=== PATIENT | male | born 1975 ===

== ENCOUNTER 2021-05-15 12:43 | Emergency (ER) | payer SELFPAY ==
[2021-05-15 13:32] VITALS: BP 146/80
[2021-05-15 14:58] LABS: Basophils % (Auto) 0.4 % (0.0-1.8); Eosinophils # (Auto) 0.1 K/mm3 (0.0-0.4); Eosinophils % (Auto) 0.9 % (0.0-4.3); Hematocrit 45.3 % (35.5-45.6); Hemoglobin 14.6 gm/dl (11.8-15.2); Lymphocytes # (Auto) 1.1 K/mm3 (1.2-5.4); Lymphocytes % (Auto) 11.3 % (13.4-35.0); Mean Corpuscular HGB Conc 32 % (32-34); Mean Corpuscular Volume 90 fl (84-94); Monocytes # (Auto) 0.5 K/mm3 (0.0-0.8); Monocytes % (Auto) 4.9 % (0.0-7.3); Platelet Count 320 K/mm3 (140-440); Red Blood Count 5.02 M/mm3 (3.65-5.03); Red Cell Distribution Width 13.9 % (13.2-15.2)
[2021-05-15 15:13] LABS: Albumin 4.1 g/dL (3.9-5); Calcium 9.1 mg/dL (8.4-10.2)
[2021-05-15] MEDS ORDERED: ONDANSETRON 4 MG/2 ML INJ IV ONE (16:01)
[2021-05-15] MEDS ORDERED: MORPHINE 4 MG/1 ML INJ IV ONE (16:01)
--- NOTE | 2021-05-15 16:06 | Event Note ---
ED Screening Note ED Screening Note: Sudden onset of epigastric pain around 10:30 AM today Denies chest pain or shortness of breath Denies history of heartburn Patient states pain worsens with sitting No vomiting or diarrhea Patient does appear very uncomfortable This initial assessment/diagnostic orders/clinical plan/treatment(s) is/are subj ect to change based on patients health status, clinical progression and re- assessment by fellow clinical providers in the ED. Further treatment and workup at subsequent clinical providers discretion. Patient/guardian urged not to elope from the ED as their condition may be serious if not clinically assessed and managed. Initial orders include: Labs CT abdomen Chest x-ray
--- NOTE | 2021-05-15 16:23 | XRay Report ---
CHEST 2 VIEWS INDICATION / CLINICAL INFORMATION: acute epigastric pain. COMPARISON: None available. FINDINGS: SUPPORT DEVICES: None. HEART / MEDIASTINUM: No significant abnormality. LUNGS / PLEURA: Suboptimal inspiration with low lung volumes and mild bibasilar atelectasis. No pneum othorax. ADDITIONAL FINDINGS: No significant additional findings. IMPRESSION: 1. No acute findings. Signer Name: Esdras Scherer MD Signed: 05/15/2021 4:19 PM Workstation Name: [id number]
[2021-05-15] MEDS ORDERED: PANTOPRAZOLE 40 MG INJ IV ONE (16:36)
--- NOTE | 2021-05-15 16:37 | Emergency Department Report ---
ED General Adult HPI - General Chief complaint: Abdominal Pain Stated complaint: STOMACH PAIN PUI?: No Time Seen by Provider: 05/15/21 16:33 Source: patient, RN notes reviewed Mode of arrival: Ambulatory Limitations: No Limitations - History of Present Illness Initial comments: The patient was evaluated in the emergency department for symptoms described in the history of present illness. He/she was evaluated in the context of the global COVID-19 pandemic, which necessitated consideration that the patient might be at risk for infection with the virus that causes COVID-19. Institutional protocols and algorithms that pertain to the evaluation of patients at risk for COVID-19 are in a state of rapid change based on informa tion released by regulatory bodies including the CDC and federal and state organizations. These policies and algorithms were followed during the patient's care in the emergency department. Please note that these policies, procedures and recommendations changed on a rapid basis. The patient is a pleasant 46-year-old gentleman, who presents to the ER today with complaint of epigastric abdominal pain. The pain does not radiate anywhere. It worsens with palpation and with certain positions. And it decreases with certain positions and leaning back. No headache, neck pain, upper chest pain, vomiting, diarrhea, urinary symptoms or testicular pain. Patient denies DVT and pulmonary embolism risk factors. He denies coughing. He does not have an outpatient primary care doctor at this time He also denies contributory family history. -: Gradual, hour(s) (Since 1030 this morning) Location: abdomen Radiation: non-radiation Consistency: constant Improves with: rest Worsens with: movement - Related Data Previous Rx's Medication Instructions Recorded Last Taken Type Acetaminophen [Non-Aspirin Extra 500 mg PO Q6HR PRN #30 tablet 05/15/21 Unknown Rx Strength] Albuterol Sulfate [Proair 90 mcg IH Q4HR PRN #2 aer.pow.ba 05/15/21 Unknown Rx Respiclick] Amoxicillin [Trimox CAP] 1,000 mg PO Q8H #28 capsule 05/15/21 Unknown Rx Azithromycin [Zithromax TAB] 250 mg PO QDAY #4 tablet 05/15/21 Unknown Rx Allergies Allergy/AdvReac Type Severity Reaction Status Date / Time No Known Allergies Allergy Unverified 05/15/21 13:25 ED Review of Systems ROS: Stated complaint: STOMACH PAIN Other details as noted in HPI Constitutional: denies: fever Eyes: denies: eye discharge ENT: denies: epistaxis Respiratory: denies: cough Cardiovascular: denies: chest pain Gastrointestinal: abdominal pain. denies: vomiting, hematemesis, melena, hematochezia Genitourinary: denies: dysuria Musculoskeletal: denies: back pain Neurological: denies: weakness Hematological/Lymphatic: denies: easy bleeding ED Past Medical Hx - Past Medical History Previous Medical History?: No - Surgical History Past Surgical History?: No - Medications Home Medications: Home Medications Medication Instructions Recorded Confirmed Last Taken Type Acetaminophen [Non-Aspirin Extra 500 mg PO Q6HR PRN #30 tablet 05/15/21 Unknown Rx Strength] Albuterol Sulfate [Proair 90 mcg IH Q4HR PRN #2 aer.pow.ba 05/15/21 Unknown Rx Respiclick] Amoxicillin [Trimox CAP] 1,000 mg PO Q8H #28 capsule 05/15/21 Unknown Rx Azithromycin [Zithromax TAB] 250 mg PO QDAY #4 tablet 05/15/21 Unknown Rx ED Physical Exam - General Limitations: No Limitations General appearance: obese - Head Head exam: Present: atraumatic, normocephalic - Eye Eye exam: Present: normal appearance, EOMI. Absent: nystagmus - ENT ENT exam: Present: normal exam, normal orophraynx, mucous membranes moist, normal external ear exam - Neck Neck exam: Present: normal inspection, full ROM. Absent: tenderness, meningismus - Respiratory Respiratory exam: Present: normal lung sounds bilaterally. Absent: respiratory distress, wheezes, rales, rhonchi, stridor, decreased breath sounds - Cardiovascular Cardiovascular Exam: Present: regular rate, normal rhythm, normal heart sounds. Absent: bradycardia, tachycardia, irregular rhythm, systolic murmur, diastolic murmur, rubs, gallop - GI/Abdominal GI/Abdominal exam: Present: soft, tenderness, other (There is epigastric and left upper quadrant tenderness to deep palpation. There is a negative Valdes sign. There is negative Rovsing sign. There is no right lower quadrant tenderness). Absent: distended, guarding, rebound, rigid, pulsatile mass - Rectal Rectal exam: Present: deferred - Extremities Exam Extremities exam: Present: normal inspection, full ROM, other (2+ pulses noted in the bilateral upper and lower extremities. There is no palpable cord. negative Homans sign. Muscular compartments are soft. The pelvis is stable.). Absent: pedal edema, calf tenderness - Back Exam Back exam: Present: normal inspection, full ROM. Absent: tenderness, CVA tenderness (R), CVA tenderness (L), paraspinal tenderness, vertebral tenderness - Neurological Exam Neurological exam: Present: alert, oriented X3, normal gait, other (No facial droop. Tongue midline. Extraocular movements intact bilaterally. Facial sensation intact to light touch in V1, V2, V3 distribution bilaterally. 5 and a 5 strength in 4 extremities. Sensation intact to light touch in 4 extremities.) . Absent: motor sensory deficit - Psychiatric Psychiatric exam: Present: normal affect, normal mood - Skin Skin exam: Present: warm, dry, intact, normal color. Absent: rash ED Course Vital Signs 05/15/21 13:31 Temperature 98.2 F Pulse Rate 67 Respiratory 20 Rate Blood Pressure 146/80 O2 Sat by Pulse 100 Oximetry - Reevaluation(s) Reevaluation #1: 05/15/21 17:53 Differential diagnosis, including but not limited to: GERD, gastritis, hiatal hernia, pancreatitis, obstruction Assessment and plan: 46-year-old gentleman presenting with epigastric abdominal pain and tenderness, who denies DVT and pulmonary embolism risk factors, who is low risk by Wells criteria for pulmonary embolism, who is PERC negative, who is also low risk for major adverse cardiac event as per heart score. CT scan of the abdomen pelvis will be obtained with IV and oral contrast to evaluate distal esophagus and proximal stomach/duodenum. We will treat his symptoms, and reassess after initial data points. I discussed this with the patient. He is agreeable to this plan of care. 05/15/21 18:51 Patient reassessed. He feels improved. CT scan abdomen pelvis demonstrates incidental pulmonary nodule, and left lower lung groundglass opacity. The patient is not hypoxic. He is ambulatory with a steady gait. Avoid NSAIDs, diet lifestyle modifications, empiric antibiotics to cover community acquired pneumonia, outpatient follow-up. Specifically advised on importance on follow- up with her primary care doctor or green chainer for pulmonary nodule. Patient articulates understanding. Return precautions reviewed. ED Medical Decision Making - Lab Data Result diagrams: 05/15/21 14:39 05/15/21 14:39 Vital Signs 05/15/21 13:31 Temperature 98.2 F Pulse Rate 67 Respiratory 20 Rate Blood Pressure 146/80 O2 Sat by Pulse 100 Oximetry Lab Results 05/15/21 05/15/21 05/15/21 Range/Units 14:39 14:39 16:33 WBC 9.7 (4.5-11.0) K/mm3 RBC 5.02 (3.65-5.03) M/mm3 Hgb 14.6 (11.8-15.2) gm/dl Hct 45.3 (35.5-45.6) % MCV 90 (84-94) fl MCH 29 (28-32) pg MCHC 32 (32-34) % RDW 13.9 (13.2-15.2) % Plt Count 320 (140-440) K/mm3 Lymph % (Auto) 11.3 L (13.4-35.0) % Posey % (Auto) 4.9 (0.0-7.3) % Eos % (Auto) 0.9 (0.0-4.3) % Baso % (Auto) 0.4 (0.0-1.8) % Lymph # (Auto) 1.1 L (1.2-5.4) K/mm3 Posey # (Auto) 0.5 (0.0-0.8) K/mm3 Eos # (Auto) 0.1 (0.0-0.4) K/mm3 Baso # (Auto) 0.0 (0.0-0.1) K/mm3 Seg Neutrophils % 82.5 H (40.0-70.0) % Seg Neutrophils # 8.0 H (1.8-7.7) K/mm3 Sodium 138 (137-145) mmol/L Potassium 4.1 (3.6-5.0) mmol/L Chloride 103.3 (98-107) mmol/L Carbon Dioxide 22 (22-30) mmol/L Anion Gap 17 mmol/L BUN 7 L (9-20) mg/dL Creatinine 1.3 (0.8-1.3) mg/dL Estimated GFR 59 ml/min BUN/Creatinine Ratio 5 % Glucose 124 H (75-100) mg/dL Calcium 9.1 (8.4-10.2) mg/dL Total Bilirubin 0.70 (0.1-1.2) mg/dL AST 17 (5-40) units/L ALT 13 (7-56) units/L Alkaline Phosphatase 75 (35-129) units/L Troponin T < 0.010 (0.00-0.029) ng/mL Total Protein 8.2 (6.3-8.2) g/dL Albumin 4.1 (3.9-5) g/dL Albumin/Globulin Ratio 1.0 % Lipase 26 (13-60) units/L - EKG Data -: EKG Interpreted by Md EKG shows normal: sinus rhythm Rate: bradycardia - EKG Data When compared to previous EKG there are: previous EKG unavailable 05/15/21 17:53 The EKG is interpreted at 16: 46 Sinus rhythm, rate 57 bpm. Normal axis, normal P wave axis, motion artifact. Sinus arrhythmia noted. Abnormal EKG. Not a STEMI. - Radiology Data Radiology results: pending, report reviewed, image reviewed CHEST 2 VIEWS INDICATION / CLINICAL INFORMATION: acute epigastric pain. COMPARISON: None available. FINDINGS: SUPPORT DEVICES: None. HEART / MEDIASTINUM: No significant abnormality. LUNGS / PLEURA: Suboptimal inspiration with low lung volumes and mild bibasilar atelectasis. No pneumothorax. ADDITIONAL FINDINGS: No significant additional findings. IMPRESSION: 1. No acute findings. Signer Name: Esdras Scherer MD Signed: 05/15/2021 3:19 PM Workstation Name: [id number] CT ABDOMEN AND PELVIS WITH CONTRAST INDICATION / CLINICAL INFORMATION: epigastric pain, B/L UPPER abd pain, iv/oral. TECHNIQUE: Axial CT images were obtained through the abdomen and pelvis after 100 cc of Omnipaque [address] scans at this location are performed using CT dose reduction for ALARA by means of automated exposure control. COMPARISON: None available. FINDINGS: LOWER CHEST: There are minimal peripheral groundglass densities in the left lung base. There is a 3 mm nodule, series 2 image 24 in the right lung base. LIVER: No significant abnormality. GALLBLADDER: No significant abnormality. BILE DUCTS: No significant abnormality. PANCREAS: No significant abnormality. SPLEEN: No significant abnormality. ADRENALS: No significant abnormality. RIGHT KIDNEY / URETER: No significant abnormality. LEFT KIDNEY / URETER: No significant abnormality. STOMACH / SMALL BOWEL: No significant abnormality. COLON: No significant abnormality. APPENDIX: No significant abnormality. PERITONEUM: No free fluid. No free air. No fluid collection. LYMPH NODES: No significant adenopathy. AORTA / ARTERIES: No significant abnormality. IVC / VEINS: No significant abnormality. URINARY BLADDER: No significant abnormality. REPRODUCTIVE ORGANS: No significant abnormality. ADDITIONAL FINDINGS: None. SKELETAL SYSTEM: No acute abnormality. IMPRESSION: 1. There is no obstruction, inflammation, or free air. 2. There are some mild groundglass density in the left lung base which is nonspecific. This could represent pneumonitis. Could represent some minimal small airways disease or asymmetric edema 3. Single incidental pulmonary nodule(s) in the right lower lobe measuring 3 mm with solid characteristics. Recommendation according to Fleischner Society 2017 Guidelines: Low Risk Patient: No routine follow-up; High Risk Patient: Optional CT at 12 months. Signer Name: Scott Rivas MD Signed: 05/15/2021 5:25 PM Workstation Name: [id number] Critical care attestation.: If time is entered above; I have spent that time in minutes in the direct care of this critically ill patient, excluding procedure time. ED Disposition Clinical Impression: Epigastric abdominal pain, Pulmonary nodule, Abnormal CT scan, lung, BMI 40.0- 44.9, adult Disposition: 01 HOME / SELF CARE / HOMELESS Is pt being admited?: No Does the pt Need Aspirin: No Condition: Good Additional Instructions: Avoid consumption of Motrin, ibuprofen, alcohol, tobacco, smoke products, heavy and spicy foods. Take the acetaminophen as needed for physical pain, albuterol as needed for cough and shortness of breath, and antibiotics as directed. Follow-up with a primary care doctor or green chainer within the next 2 weeks for left lower lung groundglass opacities noted on CT scan of the chest, and for right-sided lung pulmonary nodule. It is important to follow-up for right-sided pulmonary nodule to exclude tumor, cancer, malignancy. Dr. Randy Fraga Is a primary care doctor, Dr. Brush Is a local green chainer. Recommend exercise as tolerated, aggressive weight loss for body mass index of 44. Please return to the emergency room right away with new pain, worsened pain, migration of pain, projectile vomiting, change in mental status, confusion, inability tolerate liquid feeds, new, worsened or different symptoms not present on the initial emergency room evaluation Referrals: CHRISTY FRAGA MD [Staff Physician] - 3-5 Days JOSH BRUSH MD [Staff Physician] - 3-5 Days Forms: Work/School Release Form(ED)
--- NOTE | 2021-05-15 18:30 | Cat Scan Report ---
CT ABDOMEN AND PELVIS WITH CONTRAST INDICATION / CLINICAL INFORMATION: epigastric pain, B/L UPPER abd pain, iv/oral. TECHNIQUE: Axial CT images were obtained through the abdomen and pelvis after 100 cc of Omnipaque [address] scans at this location are performed using CT dose reduction for ALARA by means of automated exposure control. COMPARISON: None available. FINDINGS: LOWER CHEST: There are minimal peripheral groundglass densities in the left lung base. There is a 3 m m nodule, series 2 image 24 in the right lung base. LIVER: No significant abnormality. GALLBLADDER: No significant abnormality. BILE DUCTS: No significant abnormality. PANCREAS: No significant abnormality. SPLEEN: No significant abnormality. ADRENALS: No significant abnormality. RIGHT KIDNEY / URETER: No significant abnormality. LEFT KIDNEY / URETER: No significant abnormality. STOMACH / SMALL BOWEL: No significant abnormality. COLON: No significant abnormality. APPENDIX: No significant abnormality. PERITONEUM: No free fluid. No free air. No fluid collection. LYMPH NODES: No significant adenopathy. AORTA / ARTERIES: No significant abnormality. IVC / VEINS: No significant abnormality. URINARY BLADDER: No significant abnormality. REPRODUCTIVE ORGANS: No significant abnormality. ADDITIONAL FINDINGS: None. SKELETAL SYSTEM: No acute abnormality. IMPRESSION: 1. There is no obstruction, inflammation, or free air. 2. There are some mild groundglass density in the left lung base which is nonspecific. This could rep resent pneumonitis. Could represent some minimal small airways disease or asymmetric edema 3. Single incidental pulmonary nodule(s) in the right lower lobe measuring 3 mm with solid characteri stics. Recommendation according to Fleischner Society 2017 Guidelines: Low Risk Patient: No routine f ollow-up; High Risk Patient: Optional CT at 12 months. Signer Name: Scott Rivas MD Signed: 05/15/2021 6:25 PM Workstation Name: [id number]
[2021-05-15] MEDS ORDERED: AMOXICILLIN 500 MG CAP PO ONE (18:49)
[2021-05-15] MEDS ORDERED: AZITHROMYCIN 250 MG TAB PO STA (18:49)
--- NOTE | 2021-05-16 10:00 | Electrocardiograph Report ---
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
== END 2021-05-15 23:54 | disposition home or self-care (01) ==
LOC: ED 12:43
DX: R10.13 Epigastric pain (principal); R91.1 Solitary pulmonary nodule; Z68.42 Body mass index [BMI] 45.0-49.9, adult
CPT/HCPCS: 36415; 71046; 74177; 80053; 83690; 84484; 85025; 93005; 93010; 96374; 96375; 99284; C9113; J2270; J2405; Q9967